=== PATIENT | male | born 1985 | race Two or more races ===

== ENCOUNTER 2019-03-11 16:45 | Emergency (ER) | payer MEDICAID ==
--- NOTE | 2019-03-11 16:51 | ED Physician Chart ---
ED Chief Complaint/HPI - Patient Information Date Seen:: 03/11/19 Time Seen:: 17:07 Chief Complaint:: heroin overdose History of Present Illness:: this is a 33yo male psych patient was bib ems and he was found down on at the [employer]. the ems gave him narcan and he responded breathing much better and responsive. the patient admitted to using heroin. Allergies:: Allergies Allergy/AdvReac Type Severity Reaction Status Date / Time No Known Allergies Allergy Verified 03/11/19 16:53 Vitals:: Vital Signs - 8 hr 03/11/19 16:54 Temp 98.2 F HR 131 RR 21 BP 105/77 O2 Sat % 96 Historian:: Patient, EMS Review:: Nurse's Note Reviewed, Old Chart Reviewed ED Review of Systems - Review of Systems General/Constitutional: No fever, No chills, No weight loss, No weakness, No diaphoresis, No edema, No loss of appetite, Other (he is unable to give a review of systems at this time) Skin: No skin lesions, No rash, No bruising Head: No headache, No light-headedness Eyes: No loss of vision, No pain, No diplopia ENT: No earache, No nasal drainage, No sore throat, No tinnitus Neck: No neck pain, No swelling, No thyromegaly, No stiffness, No mass noted Cardio Vascular: No chest pain, No palpitations, No PND, No orthopnea, No edema Pulmonary: No SOB, No cough, No sputum, No wheezing GI: No nausea, No vomiting, No diarrhea, No pain, No melena, No hematochezia, No constipation, No hematemesis G/U: No dysuria, No frequency, No hematuria Musculoskeletal: No bone or joint pain, No back pain, No muscle pain Endocrine: No polyuria, No polydipsia Psychiatric: No prior psych history, No depression, No anxiety, No suicidal ideation Hematopoietic: No bruising, No lymphadenopathy Allergic/Immuno: No urticaria, No angioedema Neurological: No syncope, No focal symptoms, No weakness, No paresthesia, No headache, No seizure, No dizziness, No confusion, No vertigo ED Past Medical History - Past Medical History Obtainable: Yes Past Medical History: Cataract Family History: None Social History: Smoker, Alcohol, Illicit Drug Use, Single Surgical History: None Psychiatricy History: Schizophrenia Medication: Reviewed Family Medical History - Family Member Father Ethnicity: Living Status: Still Living Hx Family Coronary Artery Disease: Yes ED Physical Exam - Physical Examination General/Constitutional: Well-developed, well-nourished, Alert, No distress, GCS 15, Non-toxic appearing, Ambulatory Other Gen/Cons comments:: the patient is lethargic and nodding with very small pupils Head: Atraumatic Eyes: Lids, conjuctiva normal, PERRL, EOMI Skin: Nl inspection, No rash, No skin lesions, No ecchymosis, Well hydrated, No lymphadenopathy ENMT: External ears, nose nl, Nasal exam nl, Lips, teeth, gums nl Neck: Nontender, Full ROM w/o pain, No JVD, No nuchal rigidity, No bruit, No mass, No stridor Respiratory: Nl effort/Exclusion, Clear to Auscultation, No Wheeze/Rhonchi/Rales Cardio Vascular: RRR, No murmur, gallop, rubs, NL S1 S2 GI: No tenderness/rebounding/guarding, No organomegaly, No hernia, Normal BS's, Nondistended, No mass/bruits, No McBurney tenderness : No CVA tenderness Extremities: No tenderness or effusion, Full ROM, normal strength in all extremities, No edema, Normal digits & nails Neuro/Psych: Alert/oriented, DTR's symmetric, Normal sensory exam, Normal motor strength, Judgement/insight normal, Mood normal, Normal gait, No focal deficits Misc: Normal back, No paraspinal tenderness ED Labs/Radiology/EKG Results - Lab Results Results: Abnormal Lab Results 03/11/19 03/11/19 03/11/19 17:00 17:00 17:00 WBC 7.5 RBC 5.21 Hgb 15.9 Hct 47.0 MCV 90.2 MCH 30.5 H MCHC Differential 33.8 RDW 11.9 Plt Count 483 H MPV 6.8 Neutrophils % 55.3 Lymphocytes % 29.8 Monocytes % 9.2 Eosinophils % 4.9 Basophils % 0.8 PT 9.9 INR 0.95 Sodium 138 Potassium 3.4 L Chloride 103 Carbon Dioxide 19.6 L Anion Gap 18.8 H BUN 9 Creatinine 1.0 Est GFR ( Amer) > 60.0 Est GFR (Non-Af Amer) > 60.0 BUN/Creatinine Ratio 9.0 Glucose 104 Calcium 9.2 Total Bilirubin 0.2 L AST 32 ALT 53 H Alkaline Phosphatase 72 Troponin I Total Protein 7.6 Albumin 4.3 Globulin 3.3 Albumin/Globulin Ratio 1.3 TSH 03/11/19 03/11/19 17:00 17:00 WBC RBC Hgb Hct MCV MCH MCHC Differential RDW Plt Count MPV Neutrophils % Lymphocytes % Monocytes % Eosinophils % Basophils % PT INR Sodium Potassium Chloride Carbon Dioxide Anion Gap BUN Creatinine Est GFR ( Amer) Est GFR (Non-Af Amer) BUN/Creatinine Ratio Glucose Calcium Total Bilirubin AST ALT Alkaline Phosphatase Troponin I < 0.01 L Total Protein Albumin Globulin Albumin/Globulin Ratio TSH 1.23 - EKG Interpretations EKG Time:: 15:39 Rate & Rhythm: mymq=[id number], [place]: left ED Assessment - Assessment General Assessment: heroin overdose ED Septic Shock - . Is Septic Shock (SBP<90, OR Lactate>4 mmol\L) present?: No - <6hrs of presentation: Vital Signs: Vital Signs - 8 hr 03/11/19 16:54 Temp 98.2 F HR 131 RR 21 BP 105/77 O2 Sat % 96 ED Reassessment (Disposition) - Reassessment Reassessment Condition:: Improved - Diagnosis Diagnosis:: heroin overdose - Aftercare/Follow up Instructions Aftercare/Follow-Up Instructions:: Counseled pt regarding lab results/diagnosis & need follow up, Refer to Discharge Instructions, Counseled pt & family regarding lab results/diagnosis & need follow up - Patient Disposition Discharge/Transfer:: Home Condition at Disposition:: Improved
[2019-03-11] MEDS ORDERED: Naloxone 0.4 mg/mL 1mL Vial ONE ×2 (17:01→17:22)
[2019-03-11 17:05] LABS: BASOPHILE ABSOLUTE 0.1 Th/cumm (0-0.2); EOSINOPHILE ABSOLUTE 0.4 Th/cmm (0.1-0.4); LYMPHOCYTE ABSOLUTE 2.2 Th/cmm (1.5-3.0); RED BLOOD COUNT 5.21 Mil/cmm (4.30-5.70); WHITE BLOOD COUNT 7.5 Th/cmm (4.8-10.8)
[2019-03-11 17:08] LABS: % BASOPHILS 0.8 % (0.0-2.0); % EOSINOPHILS 4.9 % (0.0-5.0); % LYMPHOCYTES 29.8 % (20.0-50.0); % MONOCYTES 9.2 % (2.0-10.0); % NEUTROPHILS 55.3 % (40.0-80.0); HEMOGLOBIN 15.9 gm/dL (12-16); MEAN CELL VOLUME 90.2 fl (80-99); MEAN CORPUSCULAR HEMOGLOBIN 30.5 pg (26.0-30.0); MEAN CORPUSCULAR HGB CONC 33.8 pg (28.0-36.0); MEAN PLATELET VOLUME 6.8 fl; MONOCYTE ABSOLUTE 0.7 Th/cmm (0.3-1.0); NEUTROPHILE ABSOLUTE 4.1 Th/cmm (1.8-8.0); PLATELET COUNT 483 Th/cmm (150-400); RED CELL DISTRIBUTION WIDTH 11.9 % (11.5-20.0)
[2019-03-11 17:15] LABS: INR 0.95 (0.5-1.4); PROTHROMBIN TIME (TEST) 9.9 SECONDS (9.5-11.5)
[2019-03-11] MEDS ORDERED: Naloxone 0.4 mg/mL 1mL Vial IVP STA ×2 (17:15→17:19)
[2019-03-11 17:19] LABS: ALB/GLOB RATIO 1.3 (1.0-1.8); ALBUMIN 4.3 gm/dL (4.2-5.5); ALKALINE PHOSPHATASE 72 U/L (34-104); ANION GAP 18.8 (7.0-16.0); BILIRUBIN,TOTAL 0.2 mg/dL (0.3-1.0); BUN - UREA NITROGEN 9 mg/dL (7-25); CALCIUM SERUM 9.2 mg/dL (8.6-10.3); CARBON DIOXIDE 19.6 mEq/L (21.0-31.0); CHLORIDE 103 mEq/L (98-107); GFR AFRICAN-AMERICAN > 60.0 ml/min (>90); GFR NON AFRICAN-AMERICAN > 60.0 ml/min; GLUCOSE 104 mg/dL (70-105); POTASSIUM SERUM 3.4 mEq/L (3.5-5.1); SGOT 32 U/L (13-39); SGPT/ALT 53 U/L (7-52); SODIUM SERUM 138 mEq/L (136-145); TOTAL PROTEIN,SERUM 7.6 gm/dL (6.0-8.3)
[2019-03-11] MEDS ORDERED: Sodium Chloride 0.45% 1,000 ML IV ONE (17:42)
[2019-03-11] MEDS ORDERED: Potassium Chloride Elixir 20 mEq /15 mL UDC PO ONE (17:42)
[2019-03-11] MEDS ORDERED: Potassium Chloride Elixir 20 mEq /15 mL UDC ONE (17:50)
== END 2019-03-11 18:25 | disposition home or self-care (01) ==
LOC: ER 16:45
DX: T40.1X1A Poisoning by heroin, accidental (unintentional), initial encounter (principal); F20.9 Schizophrenia, unspecified; F17.200 Nicotine dependence, unspecified, uncomplicated; Y92.89 Other specified places as the place of occurrence of the external cause
CPT/HCPCS: 36415-UA; 80053-TC; 84443-TC; 84484-TC; 85025-TC; 85610-TC; 93005; 96374; X6614